=== PATIENT | male | born 1980 | race Caucasian/White ===

== ENCOUNTER → 2018-04-26 10:24 | Outpatient (CLI) | payer OTHER, MEDICAID, SELFPAY ==
--- NOTE | 2018-04-26 10:25 | DI.MRI.S_ITS ---
PROCEDURE: MR HEAD/BRAIN WO CON INDICATIONS: R sided headache for 1+ year. TECHNIQUE: Noncontrast axial T1 spin echo, axial T2 fast spin echo, sagittal and axial FLAIR, coronal T2 fast spin echo, axial gradient echo, axial diffusion and ADC through the brain. COMPARISON: None. FINDINGS: Image quality: Excellent. CSF Spaces: Basal cisterns are patent. No extra-axial fluid collections. Ventricles are normal in size and shape. Brain: No intracranial masses or hemorrhage. Lee/white matter interface is normal. Brainstem appears normal. Diffusion-weighted images demonstrate no acute ischemic insult. No chronic ischemic insults. Normal intravascular flow voids are present. Skull and face: Calvarium has normal marrow signal. Orbits appear normal. Sinuses: Mild mucosal thickening noted in the sphenoid sinuses. The mastoids are clear. IMPRESSION: 1. No intracranial disease process. 2. No abnormal intracranial mass. 3. No abnormal intracranial signal. 4. Mild bilateral sphenoid sinus mucosal thickening. Dictated by: Faith Park MD, PhD on 04/26/2018 at 12:15 Approved by: Faith Park MD, PhD on 04/26/2018 at 12:18
== END ==
PROVIDERS: PCP Nurse Practitioner Family; Visit Provider Family Medicine
DX: G44.59 Other complicated headache syndrome (principal)
CPT/HCPCS: 70551

== ENCOUNTER → 2018-09-14 11:34 | Outpatient (CLI) | payer OTHER, MEDICAID, SELFPAY ==
--- NOTE | 2018-09-14 | DI.MRI.S_ITS ---
PROCEDURE: MR PELIS WO/W CON INDICATIONS: RIGHT GROIN PAIN TECHNIQUE: Coronal HASTE, sagittal T2 FSE, axial T1 FSE, axial and coronal nonbreath-hold T2 FSE. Axial dynamic VIBE during administration of contrast. Post-contrast axial and coronal VIBE/2-D FLASH with fat saturation from the iliac crests to the symphysis. Optional diffusion weighted imaging and ADC may be performed. COMPARISON: None. FINDINGS: Image quality: Excellent. Bowel and peritoneum: No pathologic free pelvic fluid. Inferior colon and small bowel loops are normal in caliber. Genitourinary system: Bladder wall is normal in thickness. Distal ureters are non distended. Nodes and vessels: No pathologic pelvic or inguinal adenopathy by size criteria. Iliac vessels are normal in caliber. Soft tissues: No inguinal hernias. Bones: Marrow is normal in overall signal. IMPRESSION: Normal MRI of the pelvis. Dictated by: Corrine Hathaway M.D. on 09/14/2018 at 14:36 Approved by: Corrine Hathaway M.D. on 09/14/2018 at 15:01
== END ==
PROVIDERS: PCP Nurse Practitioner Family; Visit Provider Nurse Practitioner Family
DX: R10.31 Right lower quadrant pain (principal)
CPT/HCPCS: 72197

== ENCOUNTER → 2019-05-26 10:29 | Outpatient (CLI) | payer OTHER, MEDICAID, SELFPAY ==
--- NOTE | 2019-05-26 10:46 | DI.CT.S_ITS ---
PROCEDURE: CT FACIAL BONES WO CON INDICATIONS: facial pain. Emphasis on mandible and TMJ. TECHNIQUE: Noncontrast 2.5 mm thick axial images acquired from the mandible through the frontal sinuses, with coronal and sagittal reformatting. For radiation dose reduction, the following was used: automated exposure control, adjustment of mA and/or kV according to patient size. COMPARISON: [facility], MR, MR HEAD/BRAIN WO CON, 04/26/2018, 10:52. FINDINGS: Image quality: Excellent. Bones and teeth: In this patient with this given history, scrutiny is given to the temporomandibular joints. The temporomandibular joints demonstrate a normal appearance, without abnormal degenerative changes. Visualized portions of the mandible demonstrate no fractures or subluxation. Orbital mcghee are intact. Sinus mcghee show no fracture or deformity. Nasal bones and septum are intact. Mild rightward nasal septal deviation is incidentally noted. Zygomatic arches are intact. Pterygoid plates are intact. Visualized portions of the skull base and auditory canals are intact. Incidental note is made of a bony excrescence along the superior aspect of the dens, as on series 5 image 68. Sinuses: Paranasal sinuses are aerated, without fluid levels, mucosal thickening, or mucoceles. Mastoid air cells are aerated. Soft tissues: No edema, masses, or fluid collections. No enlarged lymph nodes. No soft tissue lacerations or debris. Vascular: Visualized vascular structures appear normal in the absence of contrast. Bony vascular foramina and canals are intact. IMPRESSION: Unremarkable temporomandibular joints by CT. No mandibular abnormalities are seen. If clinically appropriate, please consider a dedicated temporomandibular joint protocol MRI for further evaluation (assuming that there is no contraindication). Dictated by: Yoan Merino M.D. on 05/26/2019 at 10:30 Approved by: Yoan Merino M.D. on 05/26/2019 at 10:33
== END ==
PROVIDERS: PCP Nurse Practitioner Family; Visit Provider Family Medicine
DX: G50.1 Atypical facial pain (principal)
CPT/HCPCS: 70486

== ENCOUNTER → 2019-08-22 10:27 | Outpatient (CLI) | payer OTHER, MEDICAID, SELFPAY ==
--- NOTE | 2019-08-22 10:28 | DI.MRI.S_ITS ---
PROCEDURE: MR CERVICAL SPINE WO CON INDICATIONS: Diagnosis of chronic headache with a prior neck fracture age TECHNIQUE: Noncontrast sagittal T1 spin echo and T2 fast spin echo, sagittal STIR, foraminal oblique sagittal T2 fast spin echo, and axial gradient echo or T2 fast spin echo through the cervical spine. COMPARISON: None. FINDINGS: Image quality: Excellent. Alignment and Curvature: There is normal bony alignment. Bone Marrow: Marrow demonstrates normal overall signal. Spinal Cord: Visualized spinal cord has normal size and signal. No cerebellar tonsillar herniation. Paraspinous Soft Tissues: No paravertebral masses. Prevertebral soft tissues are normal in thickness. C2-C3: No canal stenosis or foraminal stenosis. C3-C4: Mild disc bulge. No canal stenosis. Bilateral uncovertebral joint hypertrophy. Moderate to severe right foraminal narrowing with flattening deformity on the right C4 nerve root. Mild to moderate left foraminal narrowing. C4-C5: Minimal central posterior disc protrusion. No canal stenosis. Mild right uncovertebral joint hypertrophy. Mild right foraminal narrowing. C5-C6: Mild disc bulge. No canal stenosis or foraminal stenosis. Mild bilateral facet hypertrophy. C6-C7: Mild disc bulge. No canal stenosis or foraminal stenosis. Mild bilateral facet hypertrophy. C7-T1: No canal stenosis. Mild right facet hypertrophy. IMPRESSION: 1. Multilevel disc bulges. 2. No canal stenosis. 3. Moderate to severe right foraminal narrowing at C3-C4 with flattening deformity on the right C4 nerve root. 4. Multilevel facet hypertrophy. Dictated by: Wallace Santo M.D. on 08/22/2019 at 15:13 Approved by: Wallace Santo M.D. on 08/22/2019 at 15:27
== END ==
PROVIDERS: PCP Nurse Practitioner Family; Referring Provider Family Medicine; Visit Provider Family Medicine
DX: R51 Headache (principal); M48.02 Spinal stenosis, cervical region; M50.21 Other cervical disc displacement, high cervical region
CPT/HCPCS: 72141

== ENCOUNTER → 2023-09-14 07:53 | Outpatient (CLI) | payer OTHER, MEDICAID, SELFPAY ==
--- NOTE | 2023-09-15 09:54 | DI.NM.S_ITS ---
DATE OF SERVICE: 09/14/2023 PROCEDURE PERFORMED: Exercise treadmill stress test without imaging. ORDERING PROVIDER: Yoan Church DO. INDICATIONS: The patient is a 43-year-old, obese male, with chest discomfort. FINDINGS: 1. The patient was able to exercise for 5 minutes and 38 seconds on a standard Joon protocol, suggesting markedly reduced exercise capacity with an FILIPE of +46%, achieving only 6.5 METS. 2. He had a normal heart rate response to exercise with a maximum heart rate of 159 BPM (91% of his predicted maximum). He had a mild hypertensive blood pressure response with a resting blood pressure of 140/90, increasing to a maximum of 210/100. His oxygen saturation remained normal at peak exercise at 98%. 3. He had no chest discomfort or other anginal symptoms but stopped because of dyspnea and calf burning. 4. His resting ECG showed sinus rhythm with normal ST segments. There were no significant ST-segment shifts or arrhythmias with stress. IMPRESSION: 1. Normal exercise treadmill stress test for ischemia. 2. Markedly reduced exercise capacity without angina or arrhythmias. He had a mild hypertensive blood pressure response to exercise. Manoj Wallace - ALON/luis/BRUNO doc#: [id number]/job#: [id number] dd: 09/14/2023 16:54:00 dt: 09/15/2023 00:15:00 DICTATING MD/COPIES TO: Casimiro Sandoval MD; Yoan Church M.D. COPIES MNE: HAI;
== END ==
LOC: RAD 07:55
PROVIDERS: PCP Family Medicine; Referring Provider Family Medicine; Visit Provider Family Medicine
DX: R07.9 Chest pain, unspecified (principal); E66.9 Obesity, unspecified; Z68.36 Body mass index [BMI] 36.0-36.9, adult
CPT/HCPCS: 93017

== ENCOUNTER 2024-09-11 10:13 | Emergency (ER) | payer OTHER, MEDICAID, SELFPAY ==
[2024-09-11] VITALS (19 sets, daily range): BP systolic 127–173; BP diastolic 73–108; PULSE 86–104; RESP 16–27; TEMP 36.6; O2SAT 94–99; BMI 34.8
--- NOTE | 2024-09-11 10:26 | DI.RAD.S_ITS ---
PROCEDURE: XR CHEST 1V INDICATIONS: chest pain TECHNIQUE: One view of the chest was acquired. COMPARISON: None. FINDINGS: Surgical changes and devices: None. Lungs and pleura: Lungs are hypoinflated but clear. No pleural effusions or pneumothorax. Mediastinum: Mediastinal contours appear normal. Heart size is normal. Bones and chest wall: No suspicious bony lesions. Overlying soft tissues appear unremarkable. IMPRESSION: No acute cardiopulmonary abnormality is seen. Dictated by: Oliva Nava M.D. on 09/11/2024 at 10:18 Approved by: Oliva Nava M.D. on 09/11/2024 at 10:19
--- NOTE | 2024-09-11 11:03 | EKG_ITS ---
[address] [address] Test Date: 2024-09-11 Pat Name: Manoj Wallace Department: [facility] Room: Gender: Male Business Objects: LAURA : 1980 Requested By: Order Number: [id number] Reading MD: Mario Alberto Green Measurements Intervals [place] Rate: 90 P: 23 PA: 196 QRS: -16 QRSD: 68 T: 40 QT: 322 QTc: 393 Interpretive Statements Normal sinus rhythm Septal infarct , age undetermined Possible Inferior infarct , age undetermined Electronically Signed On 09-12-2024 8:46:15 PDT by Mario Alberto Green
[2024-09-11 11:17] LABS: INR 0.9 (0.9-1.3); Prothrombin Time 10.4 SECONDS (9.4-12.5)
[2024-09-11 11:20] LABS: Hematocrit 47.4 % (41-53); Hemoglobin 16.6 g/dL (13.5-17.5); Mean Corpuscular HGB Conc 35.1 % (30-36); Mean Corpuscular Hemoglobin 29.2 PG (26-34); Mean Corpuscular Volume 83.2 fL (80-100); PTT Partial Thromboplastin Tim 35 SECONDS (25.1-36.5); Platelet Count 379 X10^3/uL (150-400); Red Cell Distribution Width 13.3 % (11.6-14.8)
[2024-09-11 11:23] LABS: Add Manual Diff / Slide Review YES
[2024-09-11 11:27] LABS: Alanine Aminotransferase 74 IU/L (<50); Albumin 4.9 g/dL (3.5-5.0); Albumin Globulin Ratio 1.4 (1.0-2.8); Alkaline Phosphatase 77 U/L (38-126); Aspartate Aminotransferase 50 IU/L (17-59); BUN Creatinine Ratio 19.2 (6-22); Bilirubin Total 0.5 mg/dL (0.2-1.3); Blood Urea Nitrogen 15 mg/dL (9-20); Calcium 9.7 mg/dL (8.4-10.2); Carbon Dioxide 22 mmol/L (22-32); Chloride 101 mmol/L (98-107); Creatine Kinase 82 U/L (55-170); Estimated Glomerular Filt Rate > 60 mL/min (>60); Globulin 3.4 g/dL (1.7-4.1); Glucose 160 mg/dL (70-100); HEMOLYSIS < 15 (0-50); Lipase 66 U/L (23-300); Magnesium 1.9 mg/dL (1.6-2.3); Potassium 4.2 mmol/L (3.4-5.1); Sodium 136 mmol/L (137-145); Total Protein 8.3 g/dL (6.3-8.2)
[2024-09-11 11:37] LABS: Neutrophils Absolute Manual 5900 /uL (3000-5900); RBC Morphology Normal Morphology; Total Cells Counted 100
[2024-09-11 11:39] LABS: NT-proBNP (BNP-Adult 18+) < 20 pg/mL (<125); Troponin I < 0.012 ng/mL (0.01-0.034)
[2024-09-11] MEDS: ONDANSETRON 4 MG/2 ML INJ IV ×2 (11:52→13:30)
[2024-09-11 11:54] LABS: D Dimer 405 ng/ml (<500)
--- NOTE | 2024-09-11 13:13 | ED_ITS ---
HPI - Dizziness General Chief Complaint: Dizziness Stated Complaint: SOB, back pain, dizzy, SCHNEIDER Time Seen by Provider: 09/11/24 11:35 History of Present Illness HPI Narrative: Patient is a 44-year-old male history of hypertension chronic back pain presenting today with variety of symptoms. He reports that he had elective inguinal hernia repair surgery as an outpatient on August 28. 1 week ago he woke up and felt intense Jeremiah her horse in his neck and had some numbness in his right side. He says he was kind of dropping stuff at times but it is extremely painful. He also feels like he is dizzy is definitely worse with movement and position. He denies any double vision. He sometimes feels like he has chest pain and short of breath. Sometimes his chest hurts to touch sometimes not. He has been taking Flexeril pregabalin gabapentin for his pain without any kind of relief. Patient reports he has been doing Adrienne maneuver multiple times a day for the last 3 days without any sort of relief. Also reports that he has been having ongoing chest pain for over a year or 2. He is chronic ongoing neck pain now having severe pain in neck Related Data Home Medications Medication Instructions Recorded Confirmed propranolol 10 mg tablet 10 mg PO BID 04/06/18 06/01/18 doxepin 10 mg/mL oral concentrate 10 - 60 mg PO DAILY PRN 07/12/19 07/12/19 epinephrine [Epi E-Z Pen] SUBCUT 07/12/19 07/12/19 escitalopram oxalate 20 mg tablet 20 mg PO DAILY 07/12/19 07/12/19 hyoscyamine sulfate 0.125 mg 0.125 mg PO .unk PRN 07/12/19 07/12/19 disintegrating tablet meloxicam 7.5 mg tablet 7.5 mg PO DAILY 07/12/19 07/12/19 metoprolol succinate 50 mg 50 mg PO DAILY 07/12/19 07/12/19 tablet,extended release 24 hr pravastatin 20 mg tablet 20 mg PO DAILY 07/12/19 07/12/19 Previous Rx's Medication Instructions Recorded galcanezumab-gnlm 120 mg/mL 120 mg SUBCUT QMONTH #1 mL 07/19/19 subcutaneous pen injector (Emgality Pen) galcanezumab-gnlm 120 mg/mL 240 mg (2 mL) SUBCUT ONCE #2 mL 07/19/19 subcutaneous pen injector (Emgality Pen) diazepam 2 mg tablet (Valium) 2 mg PO BID PRN muscle spasm #14 09/11/24 tabs hydrocodone 5 mg-acetaminophen 325 1 tab PO Q6H PRN pain #10 tabs 09/11/24 mg tablet meclizine 25 mg tablet 25 mg PO TID PRN dizziness #10 tabs 09/11/24 ondansetron 4 mg disintegrating 4 mg PO Q8H PRN nausea and 09/11/24 tablet vomiting #10 tabs Allergies Allergy/AdvReac Type Severity Reaction Status Date / Time gabapentin Allergy Severe seizures Verified 07/12/19 11:04 coffee (Coffea arabica) Allergy Mild RASH Verified 07/12/19 11:04 [COFFEE] BREWERS YEAST AdvReac Mild NAUSEA Uncoded 07/12/19 11:04 Patient History Surgical History History of wisdom tooth extraction History of hernia surgery Family History Mother Aortic atherosclerosis Social History Smoking Status: Former smoker Smoking Status: Former smoker Exam Initial Vital Signs Initial Vital Signs: Vital Signs Temperature 97.8 F 09/11/24 10:21 Pulse Rate 104 H 09/11/24 10:21 Respiratory Rate 16 09/11/24 10:21 Blood Pressure 173/83 H 09/11/24 10:21 Pulse Oximetry 95 09/11/24 10:21 Oxygen Delivery Method Room Air 09/11/24 10:21 GENERAL: Alert 44-year-old male HEENT: Head atraumatic,EOMI, pupils reactive, face symmetric, moist mucous membranes NECK: No vertebral tenderness no step-off no reproducible pain to palpation CARDIOVASCULAR: Regular rate and rhythm without murmurs, rubs or gallops. RESPIRATORY: Breath sounds equal bilaterally, no wheezes rales or rhonchi. ABDOMEN: Soft, nontender. Normoactive bowel sounds all 4 quadrants. No guarding or rebound. EXTREMITIES: Normal range of motion, no clubbing or edema. Neurovascularly intact NEUROLOGICAL: Alert and oriented x4.Normal gait and speech. Cranial nerves II through XII grossly intact. Good [id number], good mguy-ul-hbfn, strength equal bilaterally, no dysarthria or aphasia, sensation in tact to soft touch bilaterally, no visual changes, no facial droop SKIN: Warm, dry, no laceration, no petechiae, no rashes or lesions. Scores NIH Stroke Scale Level of Conciousness: Alert, keenly responsive Ask month/age: Answers both questions correctly. Open/close eyes, close hand: Performs both tasks correctly Best gaze horizontal: Normal Visual waters: No visual loss Facial palsy: Normal symetrical movement Left arm drift: No drift for full 10 sec Right arm drift: No drift for full 10 sec Left leg drift: No drift for full 5 sec Right leg drift: No drift for full 5 sec Limb ataxia: Absent Sensory on face/arms/legs: Normal, no sensory loss Best language: No aphasia, normal Dysarthria: Normal Extinction or inattention: No abnormality Total NIH Stroke scale score: 0 Course Orders Ordered: ED Orders 09/11/24 10:26 XR chest 1V Stat EKG-12 Lead Stat 09/11/24 10:56 Complete Blood Count AUTO DIFF Stat Comprehensive Metabolic Panel Stat D Dimer Stat Lipase Stat Magnesium Stat NT-proBNP (BNP-Adult 18+) Stat PTT Partial Thromboplastin Petr Stat Prothrombin Time INR Stat Troponin & CK Cardiac Panel Stat 09/11/24 12:25 Trop I [Troponin I] Stat 09/11/24 13:14 CT angio head and neck Stat 09/11/24 15:31 MR head/brain wo con Stat Discontinued Medications Hydromorphone HCl (Hydromorphone 0.5 Mg Inj) 0.5 mg IV NOW ONE Stop: 09/11/24 13:15 Last Admin: 09/11/24 13:44 Dose: 0.5 mg Documented By: TC Ketorolac Tromethamine (Ketorolac 30 Mg/Ml Vial) 15 mg IV NOW ONE Stop: 09/11/24 13:15 Last Admin: 09/11/24 13:41 Dose: 15 mg Documented By: TC Lorazepam (Lorazepam 2 Mg/Ml Inj) 0.5 mg IV NOW ONE Stop: 09/11/24 15:32 Last Admin: 09/11/24 16:09 Dose: 0.5 mg Documented By: SPF Meclizine HCl (Meclizine Hcl 12.5 Mg Tablet) 25 mg PO NOW ONE Stop: 09/11/24 15:49 Last Admin: 09/11/24 16:08 Dose: 25 mg Documented By: KURT Ondansetron HCl (Ondansetron 4 Mg/2 Ml Inj) 4 mg IV NOW ONE Stop: 09/11/24 11:29 Last Admin: 09/11/24 11:52 Dose: 4 mg Documented By: KURT Ondansetron HCl (Ondansetron 4 Mg/2 Ml Inj) 4 mg IV NOW ONE Stop: 09/11/24 13:38 Last Admin: 09/11/24 13:30 Dose: 4 mg Documented By: TC Vital Signs Vital signs: Vital Signs - 8 hr 09/11/24 10:53 09/11/24 10:53 09/11/24 11:00 Pulse Rate 98 H 97 H Respiratory Rate 18 Blood Pressure 170/108 H Pulse Oximetry 99 97 Oxygen Delivery Method Room Air 09/11/24 11:30 09/11/24 12:00 09/11/24 12:10 Pulse Rate 95 H 97 H Respiratory Rate 19 17 Blood Pressure 154/99 H Pulse Oximetry 96 95 Oxygen Delivery Method Room Air 09/11/24 12:10 09/11/24 12:30 09/11/24 12:30 Pulse Rate 95 H 94 H Respiratory Rate 18 21 Blood Pressure 144/87 H Pulse Oximetry 97 94 Oxygen Delivery Method 09/11/24 13:00 09/11/24 13:00 09/11/24 13:35 Pulse Rate 98 H 96 H Respiratory Rate 20 19 Blood Pressure 131/88 Pulse Oximetry 96 96 Oxygen Delivery Method 09/11/24 14:00 09/11/24 14:30 09/11/24 15:00 Pulse Rate 98 H 93 H 90 Respiratory Rate 27 H 23 21 Blood Pressure Pulse Oximetry 96 97 97 Oxygen Delivery Method 09/11/24 15:19 09/11/24 15:19 09/11/24 15:20 Pulse Rate 86 Respiratory Rate 16 Blood Pressure 133/84 133/84 Pulse Oximetry 97 Oxygen Delivery Method 09/11/24 15:30 09/11/24 16:16 09/11/24 16:30 Pulse Rate 86 89 94 H Respiratory Rate 21 Blood Pressure Pulse Oximetry 97 98 97 Oxygen Delivery Method Room Air 09/11/24 16:31 09/11/24 16:31 09/11/24 17:00 Pulse Rate 95 H Respiratory Rate Blood Pressure 127/73 131/74 Pulse Oximetry 96 Oxygen Delivery Method 09/11/24 17:00 Pulse Rate 95 H Respiratory Rate Blood Pressure Pulse Oximetry 96 Oxygen Delivery Method Room Air MDM - Dizziness Lab Data 09/11/24 10:56 09/11/24 10:56 Labs: Lab Results 09/11/24 09/11/24 Range/Units 10:56 12:25 WBC 10.0 (4.5-11.0) X10^3/uL RBC 5.70 (4.5-5.9) X10^6/uL Hgb 16.6 (13.5-17.5) g/dL Hct 47.4 (41-53) % MCV 83.2 (80-100) fL MCH 29.2 (26-34) PG MCHC 35.1 (30-36) % RDW 13.3 (11.6-14.8) % Plt Count 379 (150-400) X10^3/uL Neut % (Auto) Not Reportable Lymph % (Auto) Not Reportable [place] % (Auto) Not Reportable Eos % (Auto) Not Reportable Baso % (Auto) Not Reportable Lymph # (Auto) Not Reportable [place] # (Auto) Not Reportable Baso # (Auto) Not Reportable Total Counted 100 Seg Neutrophils % 59.0 (38-70) % Lymphocytes % (Manual) 36.0 (25-45) % Monocytes % (Manual) 2.0 (2-11) % Eosinophils % (Manual) 1.0 L (2-4) % Basophils % (Manual) 2.0 H (0-1) % Neutrophils # (Manual) 5900 (1938-8197) /uL Plt Morphology Comment RBC Morphology Normal morphology PT 10.4 (9.4-12.5) SECONDS INR 0.9 (0.9-1.3) APTT 35 (25.1-36.5) SECONDS D-Dimer 405 (<500) ng/ml Sodium 136 L (137-145) mmol/L Potassium 4.2 (3.4-5.1) mmol/L Chloride 101 (98-107) mmol/L Carbon Dioxide 22 (22-32) mmol/L BUN 15 (9-20) mg/dL Creatinine 0.78 (0.66-1.25) mg/dL Estimated GFR > 60 (>60) mL/min BUN/Creatinine Ratio 19.2 (6-22) Glucose 160 H (70-100) mg/dL Calcium 9.7 (8.4-10.2) mg/dL Magnesium 1.9 (1.6-2.3) mg/dL Total Bilirubin 0.5 (0.2-1.3) mg/dL AST 50 (17-59) IU/L ALT 74 H (<50) IU/L Alkaline Phosphatase 77 (38-126) U/L Total Creatine Kinase 82 (55-170) U/L Troponin I < 0.012 < 0.012 (0.01-0.034) ng/mL NT-Pro-B Natriuret Pep < 20 (<125) pg/mL Total Protein 8.3 H (6.3-8.2) g/dL Albumin 4.9 (3.5-5.0) g/dL Globulin 3.4 (1.7-4.1) g/dL Albumin/Globulin Ratio 1.4 (1.0-2.8) Lipase 66 (23-300) U/L Imaging Data CTA - brain/neck: Radiologist's Impression: PROCEDURE: CT ANGIO HEAD AND NECK INDICATIONS: dizzy and right side numbnessx 1 week TECHNIQUE: After the administration of intravenous contrast, 1 mm thick sections acquired from the aortic arch through the [place] of [place]. 3-dimensional eftvoeg-yvkjsetov-mpxfhgaaxd (MIP) and/or volume rendering reformats were acquired of the central intracranial vasculature and neck separately. For radiation dose reduction, the following was used: automated exposure control, adjustment of mA and/or kV according to patient size. COMPARISON: None. FINDINGS: Image quality: Diagnostic. BRAIN: CSF spaces: Ventricles are normal in size and shape. Basal cisterns are patent. No extra-axial fluid collections. Brain: No significant abnormality of the brain can be seen. Skull and face: Calvarium and facial bones appear intact, without suspicious lesions. Orbits appear normal. Sinuses: Sinuses and mastoids are clear. HEAD CT ANGIOGRAPHY: Anterior circulation: Intracranial internal carotid arteries are normal in size and flow. The flow within the paired anterior cerebral arteries is normal and symmetric. The flow within the middle cerebral arteries is normal and symmetric. The anterior communicating artery is seen. No aneurysms are seen. Posterior circulation: Visualized portions of the vertebral arteries demonstrate normal caliber, and join to form a normal appearing basilar artery. Flow within the posterior cerebral arteries is normal and symmetric. No aneurysms are seen. NECK CT ANGIOGRAPHY: Carotid system: The great vessels demonstrate a conventional anatomy as they arise from the aortic arch. The origins of the common carotid arteries appear patent. The common carotid arteries demonstrate normal caliber and courses. Coarse calcific plaque is seen at the right carotid bulb without significant luminal narrowing. The internal carotid arteries demonstrate normal calibers and courses. Posterior circulation: The origins of the vertebral arteries both appear widely patent. The more superior extracranial portions of both vertebral arteries also demonstrate normal courses and calibers. They join to form a normal appearing basilar artery. Soft tissues: Visualized neck soft tissues demonstrate no suspicious abnormalities. Bones: No suspicious bony lesions. Visualized cervical spine appears normally aligned. IMPRESSION: No significant intracranial arterial abnormality is seen. No significant abnormality is seen within the arteries of the neck. Any quantitative measurements of stenosis were performed using NASCET criteria. Dictated by: Oliva Nava M.D. on 09/11/2024 at 12:52 Approved by: Oliva Nava M.D. on 09/11/2024 at 12:5 MR brain: Radiologist's Impression: PROCEDURE: MR HEAD/BRAIN WO CON INDICATIONS: persistant dizziness TECHNIQUE: Noncontrast axial T1 spin echo, axial T2 fast spin echo, sagittal and axial FLAIR, coronal T2 fast spin echo, axial gradient echo, axial diffusion and ADC through the brain. COMPARISON: [facility], , MR HEAD/BRAIN WO CON, 04/26/2018, 10:52. FINDINGS: Image quality: Diagnostic CSF Spaces: Basal cisterns are patent. No extra-axial fluid collections. Ventricles are normal in size and shape. Brain: No intracranial masses or hemorrhage. Lee/white matter interface is normal. Brainstem appears normal. Diffusion-weighted images demonstrate no acute infarct. No chronic ischemic insults. Normal intravascular flow voids are present. Skull and face: Calvarium has normal marrow signal. Orbits appear normal. Sinuses: Mild scattered ethmoid sinus mucosal thickening. Remainder of the paranasal sinuses appear clear. Mastoid air cells are well-aerated. IMPRESSION: MRI brain without acute intracranial abnormalities. No mass or mass effect visualized. Mild scattered ethmoid sinus disease. Dictated by: Gerardo Weiss M.D. on 09/11/2024 at 15:24 Approved by: Gerardo Weiss M.D. on 09/11/2024 at 15:28 ECG Data Attestation: I personally reviewed and interpreted this ECG as follows: Prior ECG tracings: not available for review Interpretation: Normal sinus rhythm rate 90 AZ interval 196 QRS [address] changes no priors to compare MDM Narrative Medical decision making narrative: MDM CC: Dizziness chest pain neck pain right-sided numbness Complicating co-morbidities: Chronic neck pain chronic back pain Medical records reviewed: [ ] Differential considered: labyrinthitis benign paroxysmal positional vertigo posterior CVA, acute coronary syndrome pulmonary embolism costochondritis muscle spasm chronic pain Exam documented above, pertinent findings include: Neck is nontender no nystagmus NIH stroke scale 0 chest has nonreproducible chest pain Lab Test results independently reviewed as above. Pertinent findings: D-dimer 405 No leukocytosis no anemia Electrolytes within normal limits no GENIE Troponin negative x2 Independently reviewed EKG as above Sinus rhythm no acute ischemia Imaging studies independently reviewed: CT angio no large vessel occlusion MRI does not show any evidence of posterior CVA Consultations: [ ] Treatments: Dilaudid Toradol Ativan meclizine Re-evaluations: Patient is still feeling dizzy after Dilaudid and Toradol Discussion: Patient 44-year-old male presenting today with variety of complaints. It sounds as though he has had this ongoing chest pain for a year or 2 it does not seem to be any worse today. He was 2- troponins. He recently had outpatient hernia surgery considered pulmonary embolism however D-dimer is less than 500 he has not hypoxic I think unlikely. His bigger complaint today seems to be dizziness. He is tried the Adrienne maneuver multiple times at home without any sort of success. He does not have nausea or vomiting. CT angio was ordered did not show any kind of stenosis in the carotids. Still dizzy so MRI was ordered and ruled out posterior CVA. imaging is negative no evidence of stenosis large vessel occlusion or posterior CVA. He has chronic neck pain with severe pain now in some numbness down his right hand. 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 He was given some Ativan here to help with dizziness in muscle relaxer. He did have some relief with the Toradol and Dilaudid. At this time I think symptoms are most consistent with benign paroxysmal positional vertigo. Patient was feeling better after medication here still having some dizziness. At this time supportive care only Discharge Plan Departure Patient Disposition: Home Clinical Impression: Vertigo Instructions: DI for Vertigo Activity Restrictions/Additional Instructions: *You have been diagnosed with vertigo *What to do: At this time imaging blood work all overall reassuring today. I do believe that this is vertigo. You can continue to try the Adrienne maneuver. You may need referral to ENT. *Continue to take medications as directed Valium 5 mg every 12 hours if needed for muscle spasms--do not combine this with Flexeril [place] 1 tablet every 6 hours if needed for severe pain Zofran 4 mg every 8 hours for nausea or vomiting Meclizine 25 mg every 8 hours if needed for dizziness *Follow up with your primary care provider in 2-3 days or call [phone] *Return to ER if you should have increasing pain weakness falling [or] any new, worsening or concerning symptoms CONTROLLED SUBSTANCE DISCHARGE (Narcotoic/benzodiazepine/Flexeril/Phenergan) 1. You have been prescribed narcotic medications, it does have acetaminophen/Tylenol/paracetamol in it, DO NOT TAKE MORE THAN 4,00mg in 24 hours of Tylenol. TRAMADOL DOES NOT CONTAIN TYLENOL 2. Please understand that we cannot provide further refills of narcotics, benzodiazepines or controlled substances through the ED and her pain management will need to be through your provider. 3. While on these medications you cannot drive or operate heavy machinery. 4. You cannot sign legal documents or perform any duties such as this. 5. As long as you're taking opiate pain medications he should also be taking a stool softener such as Colace, Dulcolax, MiraLAX or prune juice, to help avoid constipation. Prescriptions: New hydrocodone-acetaminophen 5-325 mg tablet 1 tab PO Q6H PRN (Reason: pain) Qty: 10 0RF diazepam [Valium] 2 mg tablet 2 mg PO BID PRN (Reason: muscle spasm) Qty: 14 0RF meclizine 25 mg tablet 25 mg PO TID PRN (Reason: dizziness) Qty: 10 0RF ondansetron 4 mg tablet,disintegrating 4 mg PO Q8H PRN (Reason: nausea and vomiting) Qty: 10 0RF No Action Emgality Pen 120 mg/mL pen injector 240 mg SUBCUT ONCE Qty: 2 0RF Rx Instructions: as a single dose; administer as two 120 mg injections at separate sites Loading lose Emgality Pen 120 mg/mL pen injector 120 mg SUBCUT QMONTH Qty: 1 6RF propranolol 10 mg tablet 10 mg PO BID pravastatin 20 mg tablet 20 mg PO DAILY escitalopram oxalate 20 mg tablet 20 mg PO DAILY meloxicam 7.5 mg tablet 7.5 mg PO DAILY hyoscyamine sulfate 0.125 mg tablet,disintegrating 0.125 mg PO .unk PRN metoprolol succinate 50 mg tablet extended release 24 hr 50 mg PO DAILY epinephrine subcut doxepin 10 mg/mL concentrate 10 - 60 mg PO DAILY PRN Referrals: Yoan Church DO [Primary Care Provider] - Stand Alone Forms: Patient Portal/API/Survey
[2024-09-11] MEDS: KETOROLAC 30 MG/ML VIAL 15 MG IV (13:41)
[2024-09-11] MEDS: HYDROMORPHONE 0.5 MG INJ IV (13:44)
[2024-09-11 13:55] LABS: Troponin I < 0.012 ng/mL (0.01-0.034)
--- NOTE | 2024-09-11 15:31 | DI.MRI.S_ITS ---
PROCEDURE: MR HEAD/BRAIN WO CON INDICATIONS: persistant dizziness TECHNIQUE: Noncontrast axial T1 spin echo, axial T2 fast spin echo, sagittal and axial FLAIR, coronal T2 fast spin echo, axial gradient echo, axial diffusion and ADC through the brain. COMPARISON: [facility], , MR HEAD/BRAIN WO CON, 04/26/2018, 10:52. FINDINGS: Image quality: Diagnostic CSF Spaces: Basal cisterns are patent. No extra-axial fluid collections. Ventricles are normal in size and shape. Brain: No intracranial masses or hemorrhage. Lee/white matter interface is normal. Brainstem appears normal. Diffusion-weighted images demonstrate no acute infarct. No chronic ischemic insults. Normal intravascular flow voids are present. Skull and face: Calvarium has normal marrow signal. Orbits appear normal. Sinuses: Mild scattered ethmoid sinus mucosal thickening. Remainder of the paranasal sinuses appear clear. Mastoid air cells are well-aerated. IMPRESSION: MRI brain without acute intracranial abnormalities. No mass or mass effect visualized. Mild scattered ethmoid sinus disease. Dictated by: Gerardo Weiss M.D. on 09/11/2024 at 15:24 Approved by: Gerardo Weiss M.D. on 09/11/2024 at 15:28
[2024-09-11] MEDS: MECLIZINE HCL 12.5 MG TABLET 25 MG PO (16:08)
[2024-09-11] MEDS: LORazepam 2 MG/ML INJ 0.5 MG IV (16:09)
== END 2024-09-11 17:23 | disposition home or self-care (01) ==
PROVIDERS: Emergency Provider Emergency Medicine; PCP Family Medicine
DX: R42 Dizziness and giddiness (principal); R20.0 Anesthesia of skin; R07.9 Chest pain, unspecified; R06.02 Shortness of breath; M54.2 Cervicalgia; R29.700 NIHSS score 0
CPT/HCPCS: 36415; 70496; 70498; 70551; 71045; 80053; 82550; 83690; 83735; 83880; 84484; 85007; 85025; 85379; 85610; 85730; 93005; 96374; 96375; 96376; 99284; J1171; J1885; J2060; J2405; Q9967